=== PATIENT | male | born 1990 | race Caucasian/White ===

== ENCOUNTER 2019-12-02 07:08 | Outpatient (CLI) | payer BC ==
--- NOTE | 2019-12-02 10:21 | CT ---
ABDOMEN AND PELVIC CT SCAN WITHOUT IV CONTRAST: Date: 12/02/2019 HISTORY: Left-sided pain. Hematuria. FINDINGS: Lung bases are clear. The visualized liver, gallbladder, pancreas, spleen, and adrenal glands are unr emarkable. There is a small, nonobstructing, punctate right renal calculus. On the left side, there is a somewhat triangular-shaped 1.0 cm diameter calculus within the renal pel vis, without evidence for acute obstruction. No obstructing ureteral calculus. Normal appearing appendix. Scattered colonic diverticulosis without acute diverticulitis. Fat-contain ing inguinal and umbilical and periumbilical hernias. IMPRESSION: 1. Bilateral renal calculi. No evidence for obstructing calculus. 2. Fat-containing inguinal and umbilical hernias. 3. No CT evidence for acute appendicitis. 4. Diverticulosis without acute diverticulitis. POS: [facility]
== END 2019-12-02 07:09 | disposition home or self-care (01) ==
LOC: CT 07:08
PROVIDERS: ATTEND Urology
DX: N20.0 Calculus of kidney (principal); K40.90 Unilateral inguinal hernia, without obstruction or gangrene, not specified as recurrent; K42.9 Umbilical hernia without obstruction or gangrene; K57.90 Diverticulosis of intestine, part unspecified, without perforation or abscess without bleeding
CPT/HCPCS: 74176

== ENCOUNTER 2019-12-20 10:18 | Day surgery (SDC) | payer BC ==
[2019-12-19 16:38] VITALS: BMI 36.6
[~2019-12-20 10:18] MED LIST: Dexamethasone 20 MG/5 ML VIAL ONE; EPHEDRINE 25 MG/5 ML SYRINGE ONE; Ketorolac Tromethamine 30 MG/ML VIAL ONE; Lidocaine 1% PF 5 ML VIAL ONE; Ondansetron PF 4 MG/2 ML Vial ONE; PHENYLEPHRINE-NS 100 MCG/ML 10 ML SYRINGE ONE; PROPOFOL 200 MG/20 ML VIAL ONE
[2019-12-20 11:09] LABS: #Eosinphils 0.2 thou/uL (0.0-0.7); #Lymphocytes 2.2 thou/uL (1.20-3.40); #Monocytes 0.5 thou/uL (0.11-0.59); #Neutrophils 3.6 thou/uL (1.40-6.50); %Basophils 0.7 % (0.0-1.0); %Eosinophils 3.4 % (0.0-10.0); %Lymphocytes 33.6 % (21.0-51.0); %Monocytes 7.4 % (0.0-10.0); Hemoglobin 15.8 g/dL (14.0-18.0); Mean Corpuscular HGB CONC 34.5 g/dL (32.0-36.0); Mean Corpuscular Hemoglobin 31.2 pg (27.0-31.0); Mean Corpuscular Volume 90.3 fL (78.0-98.0); Platelet Count 240 thou/uL (130-400); RBC Distribution Width 11.2 % (11.5-14.5); Red Blood Cell (RBC) Count 5.06 mill/uL (4.70-6.10); White Blood Cell (WBC) Count 6.5 thou/uL (4.8-10.8)
[2019-12-20] MEDS ORDERED: Levofloxacin 500 mg/D5W 100 ml Premix Bag ONE (11:28)
[2019-12-20 11:32] LABS: Anion Gap 10 mmol/L (10-20); BUN (Urea Nitrogen) 13 mg/dL (8.9-20.6); Calc. Creatinine Clearance 135 mL/min (70-130); Calcium 9.3 mg/dL (7.8-10.44); Carbon Dioxide 26 mmol/L (22-29); Chloride 105 mmol/L (98-107); Estimated GFR-MDRD 64; Glucose 96 mg/dL (70-105); Potassium 4.6 mmol/L (3.5-5.1); Sodium 136 mmol/L (136-145)
[2019-12-20] MEDS ORDERED: Iothalamate Meglumine 60% 50 ML VIAL FS ONE ×2 (12:07→12:10)
[2019-12-20] MEDS ORDERED: Midazolam HCl 2 mg/2 ml Vial ONE (12:23)
[2019-12-20] MEDS ORDERED: HYDROmorphone 0.5 MG/0.5 ML SYRINGE ONE (12:23)
--- NOTE | 2019-12-20 13:43 | RAD ---
EXAM: Retrograde IVP HISTORY: Stent for left ureteral calcification COMPARISON: CT abdomen/pelvis 12/02/2019 FINDINGS/IMPRESSION: Limited intraoperative fluoroscopic views of the retrograde IVP were submitted f or interpretation. There is a left-sided ureteral stent which appears in good position. No obvious calcification is seen. No contrast was administered for the image provided.
[2019-12-20] MEDS ORDERED: Oxybutynin 5 MG TAB ONE (14:13)
[2019-12-20] MEDS ORDERED: Phenazopyridine HCl 97.5 MG TABLET ONE (14:13)
[2019-12-20] MEDS ORDERED: Fentanyl 100 MCG/2 ML VIAL ONE (14:15)
--- NOTE | 2019-12-20 18:05 | OP ---
DATE OF PROCEDURE: 12/20/2019 PREOPERATIVE DIAGNOSIS: Left renal stone. POSTOPERATIVE DIAGNOSIS: Left renal stone. PROCEDURES PERFORMED: Left ureteroscopy with laser lithotripsy, basket extraction of stone, retrograde pyelogram, 6 x 26 double-J ureteral stent placement. ANESTHESIA: General. COMPLICATIONS: None. BLOOD LOSS: None. SPECIMEN: Left renal stone fragments. DESCRIPTION OF PROCEDURE: After informed consent, the patient was taken to the operating room and transferred to the table under his own power. Anesthesia was established. A time-out was performed showing the correct patient, site, and procedure. Preoperative antibiotics were administered. He was prepped and draped in the lithotomy position. The rigid cystoscope was advanced through the urethra into the bladder noting a normal course and caliber of the urethra. The left ureteral orifice was identified and cannulated with a wire, which was passed up to the level of the renal pelvis under fluoroscopic guidance. The scope was withdrawn, and then a 45 cm Access sheath was passed over the wire into the proximal ureter under fluoroscopic guidance. A retrograde pyelogram was performed through this showing good filling of the renal pelvis without hydronephrosis. The stone was clearly seen on fluoroscopy in the lower pole. The flexible ureteroscope was passed through the Access sheath into the renal pelvis, where the stone was identified. The stone was treated with a 200-micron laser fiber trimming it down to a few clinically significant fragments, which were then removed with a 1.9 cm Nitinol basket. The renal pelvis was then re-examined noting no clinically significant stone fragments remaining. Contrast was then instilled into the renal pelvis, and the scope and Access sheath were withdrawn leaving the wire in place. A 6 x 26 double-J ureteral stent was selected and passed over the wire with a curl in the kidney and a curl in the bladder. Strings were left attached for the patient to remove in 3 days. The strings were taped to the patient's penis. The patient was then awoken from anesthesia, transferred back to his hospital bed, and taken to PACU in stable condition, where he will discharge home upon recovery. Job ID: [id number]
== END 2019-12-20 16:00 | disposition home or self-care (01) ==
LOC: SDC 10:18
PROVIDERS: ATTEND Urology
PROC: 0T778DZ Dilation of Left Ureter with Intraluminal Device, Via Natural or Artificial Opening Endoscopic (ICD-10-PCS; principal; 2019-12-20)
PROC: 0TF48ZZ Fragmentation in Left Kidney Pelvis, Via Natural or Artificial Opening Endoscopic (ICD-10-PCS; principal; 2019-12-20)
DX: N20.0 Calculus of kidney (principal); Z87.891 Personal history of nicotine dependence
CPT/HCPCS: 36415; 74420; 80048; 82365; 85025; 87086; 88300; J1100; J1170; J1885; J1956; J2001; J2250; J2405; J2704; J3010